=== PATIENT | female | born 1955 | race Caucasian/White ===

== ENCOUNTER 2020-04-01 07:07 | Outpatient (CLI) | payer OTHER, SELFPAY ==
--- NOTE | ~2020-04-01 | XR_ITS ---
EXAMINATION: XR hip BI wo pelvis, XR sacroiliac joints min 3V DATE: 04/01/2020 08:09 INDICATION: Multiple joint pain, myalgia, malaise/fatigue and elevated sedimentation rate. TECHNIQUE: 1. Anteroposterior , frog leg and cross-table lateral views of both the left and right hips were obta ined. 2. AP and left and right oblique views of the sacroiliac joints were obtained. COMPARISON: None. FINDINGS: Alignment is normal. No fracture or suspected avascular necrosis. Mild osteoarthritis at the right hi p with slight nonuniform joint space narrowing and small marginal osteophytes along the acetabulum. L eft hip joint space appears relatively preserved. Relatively symmetric mild osteoarthritis at the sarah ateral sacroiliac joints which demonstrate thin well-defined cortical margins with no erosions to sug gest an inflammatory sacroiliitis. Disc height loss at the completely visualize lumbar spine, severe at L5-S1 mild to moderate at L3-L4 and L4-L5. Enthesophytes along the bilateral greater trochanters a nd anterior iliac spines. IMPRESSION: 1. Mild osteoarthritis at the right hip and bilateral sacroiliac joints. 2. Severe lumbosacral spondylosis. Reviewed, dictated and finalized at location A. IMPRESSION: 1. Mild osteoarthritis at the right hip and bilateral sacroiliac joints. 2. Severe lumbosacral spondylosis.
--- NOTE | ~2020-04-01 | XR_ITS ---
EXAMINATION: XR ankle LT 2V, XR foot LT 2V, XR foot RT 2V, XR ankle RT 2V DATE: 04/01/2020 08:09 INDICATION: Multiple joint pain, myalgia, malaise/fatigue and elevated sedimentation rate. TECHNIQUE: 1. Anteroposterior and lateral view of the left ankle were obtained. 2. Dorsoplantar and lateral views of the left foot were obtained. 3. Anteroposterior and lateral view of the right ankle were obtained. 4. Dorsoplantar and lateral views of the right foot were obtained. COMPARISON: None. FINDINGS: Mild right hallux valgus. Otherwise normal alignment at the bilateral feet and ankles. No fracture. P olyarticular osteoarthritis, severe at the left second and third tarsal metatarsal joints, moderate s everity at the left navicular cuneiform and first metatarsophalangeal joint and at the right second a nd fourth tarsal metatarsal joints and mild at many of the remaining tarsal metatarsal, the right fir st metatarsophalangeal and multiple bilateral interphalangeal joints. Moderate bilateral Achilles and plantar calcaneal spurs. Mild diffuse soft tissue swelling about the bilateral feet and ankles. IMPRESSION: 1. 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 Reviewed, dictated and finalized at location A. IMPRESSION: 1. 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 IMPRESSION: 1. 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 IMPRESSION: 1. 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
--- NOTE | ~2020-04-01 | XR_ITS ---
EXAMINATION: XR hand LT 2V, XR hand RT 2V, XR wrist LT 2V, XR wrist RT 2V DATE: 04/01/2020 08:09 INDICATION: Multiple joint pain, myalgia, place/fatigue and elevated sedimentation rate. TECHNIQUE: 1. Posteroanterior and lateral views of the left wrist were obtained. 2. Dorsal palmar and lateral views of the left hand were obtained. 3. Posteroanterior and lateral views of the right wrist were obtained. 4. Dorsal palmar and lateral views of the right hand were obtained. COMPARISON: None. FINDINGS: No fracture at either hand. Mild widening of the left scapholunate interval with increased scapholuna te angle consistent with dorsal intercalated segment instability (DISI) and likely scapholunate ligam ent tear/insufficiency. Suggestion of mild mallet finger deformity at the right fifth digit. Typical distribution of mild polyarticular osteoarthritis at the bilateral first carpal metacarpal joints and at multiple bilateral interphalangeal joints with distal predominance. No erosions to suggest an inf lammatory arthritis. Mild soft tissue swelling centered about the metacarpophalangeal joints. IMPRESSION: 1. Typical distribution mild polyarticular osteoarthritis at both hands. No erosions to suggest an in flammatory arthritis. 2. Widening of the left scapholunate interval with associated dorsal intercalated segment instability (DISI) suggesting scapholunate ligament insufficiency/tear. Reviewed, dictated and finalized at location A. IMPRESSION: 1. Typical distribution mild polyarticular osteoarthritis at both hands. No ero sions to suggest an inflammatory arthritis. 2. Widening of the left scapholunate interval with associated dorsal intercalat ed segment instability (DISI) suggesting scapholunate ligament insufficiency/te ar. IMPRESSION: 1. Typical distribution mild polyarticular osteoarthritis at both hands. No ero sions to suggest an inflammatory arthritis. 2. Widening of the left scapholunate interval with associated dorsal intercalat ed segment instability (DISI) suggesting scapholunate ligament insufficiency/te ar. IMPRESSION: 1. Typical distribution mild polyarticular osteoarthritis at both hands. No ero sions to suggest an inflammatory arthritis. 2. Widening of the left scapholunate interval with associated dorsal intercalat ed segment instability (DISI) suggesting scapholunate ligament insufficiency/te ar.
== END 2020-04-01 07:08 | disposition home or self-care (01) ==
LOC: ANHIMG 07:18
PROVIDERS: Visit Provider Internal Medicine Rheumatology
DX: M25.50 Pain in unspecified joint (principal); M79.10 Myalgia, unspecified site; R53.81 Other malaise; R53.83 Other fatigue; M47.816 Spondylosis without myelopathy or radiculopathy, lumbar region; M16.0 Bilateral primary osteoarthritis of hip; M19.042 Primary osteoarthritis, left hand; M19.041 Primary osteoarthritis, right hand; M25.342 Other instability, left hand; M19.072 Primary osteoarthritis, left ankle and foot; M19.071 Primary osteoarthritis, right ankle and foot
CPT/HCPCS: 72202; 73100; 73120; 73521; 73600; 73620